=== PATIENT | male | born 1955 | race Caucasian/White ===

== ENCOUNTER 2023-04-21 15:03 | Emergency (ER) | payer MEDICARE, OTHER, SELFPAY ==
[2023-04-21 15:34] VITALS: BP 175/89
[2023-04-21 15:55] LABS: % Basophils 1.3 % (0-2); % Eosinophils 4.8 % (0-6); % Immature Granulocytes 0.3 % (0-0.5); % Monocytes 10.5 % (1.7-9.3); % Neutrophils 65.1 % (42.2-75.2); Absolute Basophils 0.1 10^3/uL (0-0.2); Absolute Eosinophils 0.3 10^3/uL (0-0.7); Absolute Lymphocytes 1.3 10^3/uL (1.2-3.4); Absolute Monocytes 0.7 10^3/uL (0.1-0.6); Absolute Neutrophils 4.5 10^3/uL (1.4-6.5); Hematocrit 45.1 % (39.0-52.0); Hemoglobin 15.7 g/dL (13.0-18.0); Mean Corp Hgb Conc. 34.8 g/dL (33.0-37.0); Mean Platelet Volume 9.6 fL (7.4-10.4); Nucleated Red Blood Cells % 0 % (-); Platelet Count 266 10^3/uL (130-400); Red Cell Dist. Width 12.6 % (11.5-14.5); White Blood Cell Count 6.9 10^3/uL (4.8-10.8)
[2023-04-21 16:09] LABS: ALT (SGPT) 31 U/L (0-50); AST (SGOT) 35 U/L (17-59); Albumin 3.9 g/dl (3.5-5.0); Alkaline Phosphatase 101 U/L (38-126); Blood Urea Nitrogen 13 mg/dl (9-20); Calcium 9.5 mg/dl (8.4-10.2); Carbon Dioxide 30 mmol/L (22-30); Chloride 100 mmol/L (98-107); Glucose 99 mg/dl (70-99); Potassium 3.9 mmol/L (3.5-5.1); Sodium 136 mmol/L (135-145); Total Bilirubin 1.1 mg/dl (0.2-1.3); Total Protein 6.4 g/dl (6.3-8.2); eGFR > 60.00
[2023-04-21 17:34] VITALS: BP 157/77
--- NOTE | 2023-04-21 18:16 | ED.GENMED ---
History of Present Illness
General
Chief Complaint: Vomiting Blood
Source: patient
Exam Limitations: none
Time Seen by Provider: 04/21/23 17:44
Travel History
Have you had any contact with someone who has COVID-19?: No
Do you have any symptoms of coronavirus? Fever > 100 degrees, chills, cough, shortness of breath, sore throat, loss of taste or smell, muscle aches, or headache?: No
History of Present Illness
History of Present Illness:
67-year-old male not anticoagulated presents with nausea vomiting and loose stools. The vomiting and loose stool started last night this was preceded by 2 to 3 days worth of overall sensation of not feeling well. Last night he had a streak of red
blood and couple drops of red blood in his vomit mixed with bile. No dark-colored stools with his diarrhea. No fevers. No significant abdominal pain. He actually feels better today yesterday. He had breakfast this morning was able to keep it
down. Denies any significant pain. No other complaints at this time. He does not drink alcohol. He drinks a couple coffee a day. Denies regular use of NSAIDs
Phy Exam
Physical Exam
Physical Exam:
General: Well-appearing male no acute respiratory distress
HEENT: Normocephalic atraumatic neck is supple
Heart: Regular rate and rhythm no murmurs
Lungs: Clear to auscultation bilaterally no wheezing
Abdomen: Soft nontender nondistended no guarding rebound normal bowel sounds
Rectal exam: Brown-colored stool heme-negative
Course
Orders/Labs/Results
Orders:
Orders
04/21/23 15:47
CMP [Comprehensive Metabolic Panel] Urgent
Complete Blood Count/With Diff Urgent
04/21/23 18:11
0.9% Sodium Chloride 1000 ml [Nss] 1,000 ml IV BOLUS
Pantoprazole [Protonix IV] 40 mg IV NOW STA
Abnormal Lab Results
04/21/23
15:47
MCH 32.0 H pg
(27.0-31.0)
Absolute Monos (auto) 0.7 H 10^3/uL
(0.1-0.6)
Lymphocytes % 18.0 L %
(20.5-51.1)
Monocytes % 10.5 H %
(1.7-9.3)
04/21/23 15:47
04/21/23 15:47
Vital Signs
Initial and Last Documented VS:
Initial Vital Signs
Temp Pulse Resp BP Pulse Ox
98.3 F 64 18 175/89 98
04/21/23 15:34 04/21/23 15:34 04/21/23 15:34 04/21/23 15:34 04/21/23 15:34
Last Documented Vital Signs
Temp Pulse Resp BP Pulse Ox
98.3 F 61 16 149/80 99
04/21/23 15:34 04/21/23 17:34 04/21/23 17:34 04/21/23 20:08 04/21/23 20:15
MDM/Problems Addressed
Differential Diagnosis Includes:
Patient triaged as vomiting blood. He did show me a sample. There is 2 small drops of red blood in clear vomit. This was not coffee-ground. Stool is heme-negative here. Labs were ordered through triage which I reviewed and are negative for
acute finding. Patient feels slightly tired at this point will hydrate and give Protonix.
*Critical Care Note
Total Time (30-74mins, 75-104mins- exclusive of procedures): Not Applicable
Update Note
Update Note:
Patient given fluid bolus. Remained stable. Abdomen exam is benign upon reassessment no tenderness. Suspect underlying viral illness. Recommended continued treatment at home with PPI. Stable for discharge
ED Attending Note
-
Portions of this chart may have been created with voice recognition software.� Occasional wrong word or��sound alike� substitutions may have occurred due to the inherent limitations of voice recognition software.
Discharge Plan
Departure
Patient Disposition: Home (Routine Discharge)
Date of Disposition: 04/21/23
Time of Disposition: 20:23
Patient with high blood pressure during this ER visit?: No
Discharge Problem:
Vomiting
Instructions: Nausea and Vomiting, Adult (DC)
Referrals:
Bony Dao MD [Family Provider] -
Activity Restrictions/Additional Instructions:
Continue with plenty clear liquids. Continue with your antacids. Return for worsening symptoms otherwise follow-up with family doctor
Interventions
Interventions:
*Risk Screen - Suicide Last Done: 04/21/23 17:35
*General Assessment Last Done: 04/21/23 17:34
*Neglect/Abuse Screening Last Done: 04/21/23 17:35
ED- Fall Risk Assessment Last Done: 04/21/23 20:55
*ED COVID-19 Vaccine History Last Done: 04/21/23 15:34
*Nursing Disposition Last Done: 04/21/23 20:55
FX-Paivxs-[id number] Assessment Last Done: 04/21/23 17:35
ED- Cardiac Assessment Last Done: 04/21/23 17:35
ED- Pulmonary Assessment Last Done: 04/21/23 17:35
Discharge Date and Time
Discharge Date/Time: 04/21/23 21:05
[2023-04-21] MEDS: NSS 1000 IV (18:20)
[2023-04-21] MEDS: PROTONIX IV 40 MG IV (18:20)
[2023-04-21 20:08] VITALS: BP 149/80
== END 2023-04-21 21:05 | disposition home or self-care (01) ==
LOC: EMR 15:03
PROVIDERS: EMERGENCY PHYSICIAN Emergency Medicine; FAMILY PHYSICIAN Family Medicine
DX: R11.2 Nausea with vomiting, unspecified (principal)
CPT/HCPCS: 99283; 96374; 96361; 80053; 85025

== ENCOUNTER → 2023-06-03 06:47 | Outpatient (REF) | payer MEDICARE, OTHER, SELFPAY | LOC: RAD 06:47 | PROVIDERS: ATTENDING PHYSICIAN Specialist; FAMILY PHYSICIAN Family Medicine | DX: M25.512 Pain in left shoulder (principal) | CPT/HCPCS: 73200 ==

== ENCOUNTER → 2023-12-09 07:05 | Outpatient (REF) | payer MEDICARE, OTHER, SELFPAY | LOC: EMG 07:05 | PROVIDERS: ATTENDING PHYSICIAN Student in an Organized Health Care Education/Training Program; FAMILY PHYSICIAN Family Medicine | DX: Z96.612 Presence of left artificial shoulder joint (principal); R20.0 Anesthesia of skin | CPT/HCPCS: 95886; 95909 ==